=== PATIENT | male | born 1960 | race Caucasian/White ===

== ENCOUNTER 2017-01-15 13:48 | Emergency (ER) | payer MEDICARE, MEDICAID ==
[~2017-01-15] VITALS: Ht 175.3 cm; Wt 75.0 kg
[~2017-01-15 13:48] MED LIST: ACYC200C PO; CALC-1011 PO; CELL5 PO; DILT180C69 PO; DILT360C31 PO; DOCU-150 PO; DOXA4TAB3 PO; FURO40TA5 PO; GABA-531 PO; HYDR-3927 PO; HYDR100T26 PO; INSLAN SQ; INSLIS SQ; INSULIN REGULAR SUBCUT; LEVO250T2 PO; NIFE30TA8 PO; NPH INSULIN SQ; NYST5ORA PO; P20 PO; PROG1 PO; PROT40 PO; REN800 PO; SULF1TAB47 PO; TEMA15CA PO; [UNRECOGNIZED DRUG - OTHER]
[2017-01-15] MEDS ORDERED: KETOROLAC 30MG/ML VIAL IM ONE (15:30)
[2017-01-15 16:11] VITALS: BP 138/86
== END 2017-01-15 16:12 | disposition home or self-care (01) ==
LOC: ER 13:48
DX: R21 Rash and other nonspecific skin eruption (principal); L03.90 Cellulitis, unspecified; E11.9 Type 2 diabetes mellitus without complications; E78.00 Pure hypercholesterolemia, unspecified; I10 Essential (primary) hypertension; Z94.0 Kidney transplant status; Z79.4 Long term (current) use of insulin
CPT/HCPCS: 96372; 99283; J1885